=== PATIENT | female | born 1980 | race Caucasian/White ===

== ENCOUNTER 2019-01-03 18:32 | Emergency (ER) | payer MEDICAID ==
[~2019-01-03] VITALS: Ht 175.3 cm; Wt 107.0 kg
[~2019-01-03 18:32] MED LIST: IBUP-1986 PO; ORPH100T2 PO
[2019-01-03 18:43] VITALS: BP 130/74
[2019-01-03] MEDS ORDERED: POLOS RIGHTEYE (19:18)
== END 2019-01-03 19:32 | disposition home or self-care (01) ==
LOC: ER 18:32
DX: H10.9 Unspecified conjunctivitis (principal); Z79.899 Other long term (current) drug therapy
CPT/HCPCS: 99283